=== PATIENT | male | born 1975 | race African-American/Black ===

== ENCOUNTER 2016-06-29 07:33 | Emergency (ER) | payer OTHER ==
[~2016-06-29] VITALS: Ht 188 cm; Wt 98.5 kg
[2016-06-29 07:54] VITALS: Ht 188 cm; Wt 98.5 kg
--- NOTE | 2016-06-29 10:45 | ERD ---
ER Documentation Chief Complaint Date/Time DATE: 06/29/16 TIME: 10:41 Chief Complaint Out of insulin x yesterday HPI 40-year-old male with history of type 2 diabetes presents emergency room for medication refill for insulin. His medication refill was recommended by the pharmacy because he went to [facility] yesterday for a Lantus refill she normally takes and was told that it is no longer covered by his insurance. They were not able to reach his primary care provider and was referred to the emergency department for a new medication. Right bennett stated that the new medication is covered and basaglar. his usual medication is 30 units in the morning and 35 units at night. He states that his last dose was yesterday when he ran out he does not take other agents for diabetes. He denies dysuria, polyuria, urgency, fever, chills, dizziness, chest pain, shortness of breath. ROS All systems reviewed and are negative except as per history of present illness. Allergies Allergies: Coded Allergies: No Known Allergy (Unverified , 05/08/14) PMhx/Soc History of Surgery: Yes (knee sx) Anesthesia Reaction: No Hx Neurological Disorder: No Hx Respiratory Disorders: No Hx Cardiac Disorders: No Hx Psychiatric Problems: No Hx Miscellaneous Medical Probl: Yes (DM) Hx Alcohol Use: Yes (occasional) Hx Substance Use: No Hx Tobacco Use: No Physical Exam Vitals Vital Signs Date Time Temp Pulse Resp B/P Pulse Ox O2 Delivery O2 Flow Rate FiO2 06/29/16 07:54 98.2 86 16 138/81 99 Physical Exam General: Well-developed, well-nourished. The patient appears in no acute distress. HEENT: Head is normocephalic, atraumatic. No scleral icterus. Neck: Supple. Nontender. Lungs: Clear to auscultation. Normal air movement. Heart: Regular rate and rhythm. S1 and S2 are normal. No murmurs, gallops, or rubs. Abdomen: Nondistended. Extremities: No clubbing or cyanosis. Normal pulses. Moving extremities x 4. No weakness. Neurologic: Alert and oriented 3. No focal deficits. Skin: Normal turgor. No rash or lesions. Results 24 hrs Laboratory Tests Test 06/29/16 08:17 Bedside Glucose 245mg/dL [facility] 40-year-old male comes in for medication refill for type 2 diabetes, patient will be given a medication refill for Basaglar. Accu-Chek shows a POC glucose of 245. Concern for diabetic ketoacidosis is low. He does have a primary care physician, he was asked to receive further refills, and follow-up for diabetes care through them, for appropriate follow-up. Departure Diagnosis: Primary Impression: Encounter for medication refill Condition: Good Patient Instructions: DIABETES, General Info Additional Instructions: Call your primary care doctor TOMORROW for an appointment during the next 1-2 days.See the doctor sooner or return here if your condition worsens before your appointment time. LAKSHMI ROTHMAN PA-C June 29, 2016 10:45
== END 2016-06-29 09:24 | disposition home or self-care (01) ==
LOC: FTE 07:33
DX: Z76.0 Encounter for issue of repeat prescription (principal); E11.9 Type 2 diabetes mellitus without complications
CPT/HCPCS: 82962; 99282

== ENCOUNTER 2017-10-12 13:20 | Emergency (ER) | END 2017-10-12 15:11 | disposition home or self-care (01) ==

== ENCOUNTER 2017-11-09 10:47 | Emergency (ER) | END 2017-11-09 12:25 | disposition home or self-care (01) ==

== ENCOUNTER 2017-12-16 16:38 | Emergency (ER) | END 2017-12-16 22:00 | disposition home or self-care (01) ==